=== PATIENT | female | born 1960 | race Caucasian/White ===

== ENCOUNTER 2017-03-09 16:56 | Emergency (ER) | payer MEDICAID | END 2017-03-09 21:40 | disposition home or self-care (01) | LOC: D.ER 16:56 | DX: M54.5 Low back pain (principal); S39.012A Strain of muscle, fascia and tendon of lower back, initial encounter; X58.XXXA Exposure to other specified factors, initial encounter; Y93.89 Activity, other specified; Y92.89 Other specified places as the place of occurrence of the external cause; M62.838 Other muscle spasm; G40.909 Epilepsy, unspecified, not intractable, without status epilepticus; F17.200 Nicotine dependence, unspecified, uncomplicated ==

== ENCOUNTER 2017-09-23 13:50 | Emergency (ER) | payer MEDICAID ==
[2017-09-23 15:22] LABS: APPEARANCE HAZY (CLEAR); BILIRUBIN NEGATIVE (NEGATIVE); COLOR YELLOW (YELLOW); GLUCOSE NEGATIVE (NEGATIVE); KETONE NEGATIVE (NEGATIVE); NITRITE NEGATIVE (NEGATIVE); PROTEIN NEGATIVE (NEGATIVE); UROBILINOGEN NORMAL (NORMAL)
[2017-09-23 15:32] LABS: BACTERIA MODERATE /hpf (NONE SEEN); RED CELLS - URINE OCC /hpf (0-5)
== END 2017-09-23 16:30 | disposition home or self-care (01) ==
LOC: D.ER 13:50
PROVIDERS: Emergency Medicine
DX: K59.00 Constipation, unspecified (principal); N39.0 Urinary tract infection, site not specified; F41.9 Anxiety disorder, unspecified